=== PATIENT | male | born 1995 | race Caucasian/White ===

== ENCOUNTER 2018-12-17 15:09 | Emergency (ER) | payer OTHER ==
[~2018-12-17] VITALS: Ht 182.9 cm; Wt 54.4 kg
[2018-12-17] MEDS ORDERED: PERIDEX15 ML MM (15:52)
[2018-12-17] MEDS ORDERED: Veetids 500500 MG PO (15:52)
== END 2018-12-17 16:21 | disposition home or self-care (01) ==
LOC: ER 15:09
DX: K04.7 Periapical abscess without sinus (principal); Z88.0 Allergy status to penicillin
CPT/HCPCS: 41800; 99283-25

== ENCOUNTER 2019-03-03 22:58 | Inpatient (IN) | payer OTHER ==
[~2019-03-03] VITALS: Ht 182.9 cm; Wt 61.1 kg
[~2019-03-03 22:58] MED LIST: PERIDEX15 ML MM; Veetids 500500 MG PO
[2019-03-04 00:09] LABS: BASOPHILS ABSOLUTE AUTO 0.04 K/mm3 (0.00-0.23); BASOPHILS PERCENT AUTO 0 % (0-2); EOSINOPHILS ABSOLUTE AUTO 0.03 K/mm3 (0.00-0.68); EOSINOPHILS PERCENT AUTO 0 % (0-6); Hemoglobin 14.6 g/dL (13.5-17.5); IMMATURE GRAN ABSOLUTE AUTO 0.06 K/mm3 (0.00-0.10); IMMATURE GRAN PERCENT AUTO 0 % (0-1); LYMPHOCYTES ABSOLUTE AUTO 0.84 K/mm3 (0.84-5.20); LYMPHOCYTES PERCENT AUTO 5 % (21-46); MONOCYTES ABSOLUTE AUTO 0.79 K/mm3 (0.16-1.47); MONOCYTES PERCENT AUTO 5 % (4-13); Mean Corpuscular HGB 29.1 pg (26.0-34.0); Mean Corpuscular HGB Conc 32.4 g/dL (31.5-36.5); Mean Corpuscular Volume 90 fL (80-100); Mean Platelet Volume 11.2 fL (9.1-12.4); NEUTROPHILS ABSOLUTE AUTO 15.93 K/mm3 (1.96-9.15); NEUTROPHILS PERCENT AUTO 90 % (41-73); Platelet Count 282 K/mm3 (150-400); RDW Coefficient Variation 14.3 % (11.7-14.2); RDW Standard Deviation 47.3 fL (35.1-46.3); Red Blood Cell Count 5.01 M/mm3 (4.30-5.90); White Blood Cell Count 17.69 K/mm3 (4.00-11.30)
[2019-03-04 00:16] LABS: Alanine Aminotransfer (ALT/SGP 29 U/L (12-78); Albumin, Blood 4.2 g/dL (3.4-5.0); Albumin/Globulin Ratio 1.1 (0.8-1.8); Alk Phos 73 U/L (50-136); Anion Gap 8 mmol/L (6-16); Aspartate Aminotrans (AST/SGOT 21 U/L (12-37); Bilirubin, Total 0.3 mg/dL (0.1-1.0); Blood Urea Nitrogen 12 mg/dL (8-24); Bun/Creatinine Ratio 15.4 (12.0-20.0); CO2, Blood 28 mmol/L (21-32); Calcium, Blood 9.1 mg/dL (8.5-10.1); Chloride, Blood 105 mmol/L (98-108); Creatinine, Blood 0.78 mg/dL (0.60-1.20); Globulin, Blood 3.7 g/dL (2.2-4.0); Glomerular Filtration Rate >60 (60-); Glucose, Blood 126 mg/dL (70-99); Potassium, Blood 4.1 mmol/L (3.5-5.5); Sodium, Blood 141 mmol/L (136-145); Total Protein, Blood 7.9 g/dL (6.4-8.2)
[2019-03-04 01:47] LABS: Appearance, Synovial Fluid Cloudy (Clear); Color, Synovial Fluid Red (None-P Yel)
--- NOTE | 2019-03-04 01:51 | NUR ---
transfer report on 24 year old Male with DX sepsis and rt knee infection. Reported to have hx of multiple cellulitis and unknown organism. Smoker. await admission
[2019-03-04 02:00] LABS: BODY FLUID RBC 0.166 M/mm3 (0-0); RBC Count, Synovial Fluid 166000 /mm3 (0-0); WBC Count, Synovial Fluid 682 /mm3 (0-180)
[2019-03-04 02:03] LABS: Body Fluid Crystals NEG (NEGATIVE)
[2019-03-04 02:16] LABS: Lymphs, Synovial Fluid 4 % (0-15); Monocytes/Macrophages, Synovia 8 % (0-65); Neutrophils, Synovial Fluid 88 % (0-24)
--- NOTE | 2019-03-04 04:32 | NUR ---
24 YEAR OLD MALE ADMITTED WITH SEPSIS AND RT KNEE SEPSIS. PT HAS HX OF METH ABUSE X 6 YEARS AND MULTIPLE SKIN INFECTIONS WELL DENTAL ABSCESS ONGOING. PT HAS HX OF NONCOMPLIANCE WITH FILLING RX TO TREAT SERIOUS INFECTIONS. PT SAYS HE WAS LIFE FLIGHTED TO [facility] YEARS AGO WITH FINGER INFECTION AND WAS SEEN HERE FOR ORAL ABSCESS IN END OF NOVEMBER 2018. SAYS HE DID NOT BOTHER TO FILL RX TO TX ORAL ABSCESS. SAYS HE DRAINS TO UPPER ORAL ABSCESS DAILY BUT DID NOT YESTERDAY.PT HAS UNKEMPT APPEARANCE HE IS COOPERATIVE. BROUGHT IN TO ER BY EMPLOYER DUE TO CHILLS FEVER AND PAIN & EDEMA REDNESS WARMTH RT KNEE. WOUND CULTURE SENT BY ER. RECIEVING IV GRANT TO TX INFECTION.
[2019-03-04 04:43] LABS: BASOPHILS ABSOLUTE AUTO 0.03 K/mm3 (0.00-0.23); BASOPHILS PERCENT AUTO 0 % (0-2); EOSINOPHILS ABSOLUTE AUTO 0.01 K/mm3 (0.00-0.68); EOSINOPHILS PERCENT AUTO 0 % (0-6); IMMATURE GRAN ABSOLUTE AUTO 0.08 K/mm3 (0.00-0.10); IMMATURE GRAN PERCENT AUTO 0 % (0-1); LYMPHOCYTES ABSOLUTE AUTO 1.35 K/mm3 (0.84-5.20); LYMPHOCYTES PERCENT AUTO 7 % (21-46); MONOCYTES ABSOLUTE AUTO 0.97 K/mm3 (0.16-1.47); MONOCYTES PERCENT AUTO 5 % (4-13); Mean Corpuscular HGB 29.3 pg (26.0-34.0); Mean Corpuscular HGB Conc 32.4 g/dL (31.5-36.5); Mean Corpuscular Volume 90 fL (80-100); Mean Platelet Volume 11.3 fL (9.1-12.4); NEUTROPHILS PERCENT AUTO 87 % (41-73); Platelet Count 251 K/mm3 (150-400); RDW Coefficient Variation 14.4 % (11.7-14.2); RDW Standard Deviation 47.9 fL (35.1-46.3); White Blood Cell Count 18.24 K/mm3 (4.00-11.30)
[2019-03-04 15:27] LABS: Vancomycin, Trough 11.6 ug/mL (5.0-10.0)
--- NOTE | 2019-03-04 17:58 | NUR ---
SHIFT SUMMARY PT SLEEPING MOST OF DAY BUT ROUSES EASILY. UP FOR SHOWER THIS EVENING AND REPORTED IT HELPED PAIN TO R KNEE. DR. HANNAH IN TO SEE PT THIS AFTERNOON WITH PLANS TO DO AN I AND D ON R KNEE TOMORROW. NO FEVERS NOTED. R KNEE RED AND WARM TO TOUCH. INDEPENDENT WHEN WALKING IN ROOM.
--- NOTE | 2019-03-05 04:52 | NUR ---
SHIFT SUMMARY A/O, ABLE TO MAKE NEEDS KNOWN. COOPERATIVE WITH CARE. CALLS AND ANSWERS QUESTIONS APPROPRIATELY. C/O PAIN/DISCOMFORT X1; MEDICATED PER EMAR. APPEARED TO REST MUCH OF SHIFT. VSS/AFEBRILE. HAS BEEN NPO SINCE MIDNIGHT. NO ACUTE CHANGES OVERNIGHT. BED REMAINED IN LOWEST POSITION. CALL LIGHT AND BELONGINGS WITHIN REACH. WCTM. REPORT TO ONCOMING RN.
[2019-03-05 11:27] LABS: Vancomycin, Trough 14.1 ug/mL (5.0-10.0)
--- NOTE | 2019-03-05 13:10 | NUR ---
03/05/19 1310 Waleska Dunham PT ON SCHEDULED ANTIBIOTICS
--- NOTE | 2019-03-05 18:26 | NUR ---
SHIFT SUMMARY PT AXO, COOPERATIVE WITH CARE. PT HAD I&D THIS SHIFT, SEE NOTE. DRAIN IN PLACE, PATENT AND DRAINING SMALL AMOUNT OF RED FLUID. PT MEDICATED FOR PAIN PER EMAR. VOIDING IN URINAL. PT HAD SHOWER PRIOR TO SURGERY. VSS. IV PATENT AND INFUSING PER EMAR.
--- NOTE | 2019-03-06 04:18 | NUR ---
SHIFT SUMMARY: PT IS ALERT AND ORIENTED. PT IS CALM AND COOPERATIVE WITH CARE. PT CALLS APPROPRIATELY. PT USING THE URINAL IN BED INDEPENDENTLY, UP INDEPENDENTLY WITH FWW. PT REPORTS PAIN IN THE R. KNEE, MEDICATING PER EMAR. PT REQUESTED MELATONIN TO SLEEP, TALKED WITH Dick YUNG AND RECEIVED THE ORDER, GIVEN. PT DENIES NAUSEA, VOMITING, AND SOB. NO ACUTE CHANGES OR COMPLICATIONS OVERNIGHT. BED IN LOW POSITION, CALL LIGHT WITHIN REACH. WILL REPORT TO DAY NURSE.
[2019-03-06 04:54] LABS: BASOPHILS ABSOLUTE AUTO 0.03 K/mm3 (0.00-0.23); BASOPHILS PERCENT AUTO 0 % (0-2); EOSINOPHILS ABSOLUTE AUTO 0.01 K/mm3 (0.00-0.68); EOSINOPHILS PERCENT AUTO 0 % (0-6); Hemoglobin 10.5 g/dL (13.5-17.5); IMMATURE GRAN ABSOLUTE AUTO 0.08 K/mm3 (0.00-0.10); IMMATURE GRAN PERCENT AUTO 1 % (0-1); LYMPHOCYTES ABSOLUTE AUTO 1.09 K/mm3 (0.84-5.20); LYMPHOCYTES PERCENT AUTO 6 % (21-46); MONOCYTES ABSOLUTE AUTO 1.49 K/mm3 (0.16-1.47); MONOCYTES PERCENT AUTO 9 % (4-13); Mean Corpuscular HGB 29.2 pg (26.0-34.0); Mean Corpuscular HGB Conc 31.8 g/dL (31.5-36.5); Mean Corpuscular Volume 92 fL (80-100); Mean Platelet Volume 11.6 fL (9.1-12.4); NEUTROPHILS ABSOLUTE AUTO 14.52 K/mm3 (1.96-9.15); NEUTROPHILS PERCENT AUTO 84 % (41-73); Platelet Count 240 K/mm3 (150-400); RDW Coefficient Variation 14.5 % (11.7-14.2); RDW Standard Deviation 49.3 fL (35.1-46.3); White Blood Cell Count 17.22 K/mm3 (4.00-11.30)
[2019-03-06 05:14] LABS: Anion Gap 4 mmol/L (6-16); Blood Urea Nitrogen 13 mg/dL (8-24); Bun/Creatinine Ratio 15.9 (12.0-20.0); CO2, Blood 31 mmol/L (21-32); Calcium, Blood 8.6 mg/dL (8.5-10.1); Chloride, Blood 106 mmol/L (98-108); Creatinine, Blood 0.82 mg/dL (0.60-1.20); Glomerular Filtration Rate >60 (60-); Glucose, Blood 127 mg/dL (70-99); Potassium, Blood 4.3 mmol/L (3.5-5.5); Sodium, Blood 141 mmol/L (136-145)
[2019-03-06 11:50] LABS: Vancomycin, Trough 12.9 ug/mL (5.0-10.0)
--- NOTE | 2019-03-06 15:16 | NUR ---
SHIFT SUMMARY PT IS A/O X 4 WITH ONGOING PAIN TO HIS RIGHT KNEE. THE SURGICAL DRAIN WAS IN PLACE THIS MORNING WITH A SCANT AMOUNT OF BRIGHT RED DRAINAGE. AFTER LUNCH A PROVIDER FROM SURGERY CAME TO THE BEDSIDE AND REMOVED THE DRAIN AND THERE ARE NOW 2 AQUACEL DRESSINGS C.D.I. TO HIS RIGHT KNEE. THE KNEE AND SURROUNDING AREA ARE WARM TO THE TOUCH AND SLIGHTLY SWOLLEN. PT IS ABLE TO AMBULATE WITH FWW AND X 1 ASSIST TO THE BATHROOM BUT ALSO USES THE URINAL AT BEDSIDE. THIS NURSE ASSISTED THE PT TO TAKE A SHOWER AND CHANGED HIS LINENS WELL. IV ABO AND FLUIDS INFUSING ORDERED WITH NO ADVERSE REACTIONS OBSERVED. PT DID WORK WITH THERAPIES TODAY. HE IS RESTING IN BED AND IS ABLE TO MAKE HIS NEEDS KNOWN.
--- NOTE | 2019-03-07 03:00 | NUR ---
03/06/191929 PT RIGHT KNEE DRESSING DRY AND INTACT WITH EDEMA NOTED TO SITE; ABLE BEAR WEIGHT RLE; SLIGHTLY ANXIOUS WITH CURRENT HOSPITALIZATION AT TIMES.
--- NOTE | 2019-03-07 04:03 | NUR ---
SHIFT SUMMARY: 24 Y/O SLENDER MALE RESTED COMFORTABLY ALL SHIFT WITH OCCASIONAL EPISODES ANXIETY THAT PATIENT WAS ABLE TO RESOLVE PER SELF WITHOUT MEDICATIONS REQUIRED; +2 EDEMA RIGHT KNEE NOTED; C/O RIGHT KNEE PAIN RATED 7/10 WITH TRAMADOL 50MG PO X 1 GIVEN WITH RELIEF FELT; UP IN ROOM PER SELF AND ABLE TO BEAR WEIGHT RLE; DENIES CHEST PAIN OR SOB; BED LOW POSITION WITH CALL LIGHT AT SIDE.
[2019-03-07 11:57] LABS: Vancomycin, Trough 23.8 ug/mL (5.0-10.0)
[2019-03-07] MEDS ORDERED: TRAM50 PO (13:33)
[2019-03-07] MEDS ORDERED: BACTRIM DS TAB1 EACH PO (13:34)
--- NOTE | 2019-03-07 13:54 | NUR ---
PT DCD HOME. RX FAXED TO PHARMACY OF PT CHOICE. ALL MEDS AND INSTRUCTIONS REVIEWED WITH PT WHO VERBALIZED AN UNDERSTANDING. PT REQUESTED TO SCHEDULE HIS FOLLOW UPS. IV REMOVED WITH NO ISSUES. ALL PERSONAL BELONGINGS SENT WITH PT. PT STABLE UPON DC.
== END 2019-03-07 14:20 | disposition home or self-care (01) | DRG 854 ==
LOC: ER 22:58 → MEDS 03-04 00:45
PROVIDERS: Internal Medicine; Orthopaedic Surgery; Pharmacist; Physician Assistant; ADMIT Hospitalist
PROC: 0J9N0ZZ Drainage of Right Lower Leg Subcutaneous Tissue and Fascia, Open Approach (ICD-10-PCS; principal; 2019-03-05 12:30)
DX: A41.02 Sepsis due to Methicillin resistant Staphylococcus aureus (principal); L02.415 Cutaneous abscess of right lower limb; L03.115 Cellulitis of right lower limb; M70.51 Other bursitis of knee, right knee; F19.90 Other psychoactive substance use, unspecified, uncomplicated; F17.210 Nicotine dependence, cigarettes, uncomplicated
CPT/HCPCS: 20610; 36415; 73701; 80048; 80053; 80202; 83605; 85025; 87040; 87070; 87075; 87077; 87147; 87186; 87205; 89051; 89060; 96365; 96375; 97116; 97162; 97165; 97535; 99285; A9270; J0696; J1100; J1170; J1885; J2250; J2405; J2704; J3010; J3370; J7030; J7040; J7050; J7120; Q9967

== ENCOUNTER 2019-03-25 15:13 | Inpatient (IN) | payer OTHER ==
[~2019-03-25] VITALS: Ht 182.9 cm; Wt 61.5 kg
[~2019-03-25 15:13] MED LIST changes: +BACTRIM DS TAB1 EACH PO; +TRAM50 PO
[2019-03-25 15:59] LABS: BASOPHILS ABSOLUTE AUTO 0.07 K/mm3 (0.00-0.23); BASOPHILS PERCENT AUTO 1 % (0-2); EOSINOPHILS ABSOLUTE AUTO 0.16 K/mm3 (0.00-0.68); EOSINOPHILS PERCENT AUTO 2 % (0-6); Hematocrit 43.7 % (37.0-53.0); Hemoglobin 14.2 g/dL (13.5-17.5); IMMATURE GRAN ABSOLUTE AUTO 0.01 K/mm3 (0.00-0.10); IMMATURE GRAN PERCENT AUTO 0 % (0-1); LYMPHOCYTES ABSOLUTE AUTO 1.83 K/mm3 (0.84-5.20); LYMPHOCYTES PERCENT AUTO 23 % (21-46); MONOCYTES ABSOLUTE AUTO 0.59 K/mm3 (0.16-1.47); MONOCYTES PERCENT AUTO 7 % (4-13); Mean Corpuscular HGB 29.3 pg (26.0-34.0); Mean Corpuscular HGB Conc 32.5 g/dL (31.5-36.5); Mean Corpuscular Volume 90 fL (80-100); Mean Platelet Volume 10.4 fL (9.1-12.4); NEUTROPHILS ABSOLUTE AUTO 5.49 K/mm3 (1.96-9.15); NEUTROPHILS PERCENT AUTO 67 % (41-73); Platelet Count 391 K/mm3 (150-400); RDW Coefficient Variation 14.8 % (11.7-14.2); RDW Standard Deviation 48.9 fL (35.1-46.3); Red Blood Cell Count 4.84 M/mm3 (4.30-5.90); White Blood Cell Count 8.15 K/mm3 (4.00-11.30)
[2019-03-25 16:15] LABS: International Normalized Ratio 0.95; Prothrombin Time Results 10.2 Sec (9.7-11.5)
[2019-03-25 16:22] LABS: Alanine Aminotransfer (ALT/SGP 30 U/L (12-78); Albumin, Blood 4.5 g/dL (3.4-5.0); Albumin/Globulin Ratio 1.2 (0.8-1.8); Alk Phos 81 U/L (50-136); Anion Gap 1 mmol/L (6-16); Aspartate Aminotrans (AST/SGOT 25 U/L (12-37); Bilirubin, Total 0.4 mg/dL (0.1-1.0); Blood Urea Nitrogen 27 mg/dL (8-24); Bun/Creatinine Ratio 32.6 (12.0-20.0); CO2, Blood 29 mmol/L (21-32); Calcium, Blood 9.4 mg/dL (8.5-10.1); Chloride, Blood 107 mmol/L (98-108); Creatinine, Blood 0.83 mg/dL (0.60-1.20); Globulin, Blood 3.9 g/dL (2.2-4.0); Glomerular Filtration Rate >60 (60-); Glucose, Blood 83 mg/dL (70-99); Potassium, Blood 4.4 mmol/L (3.5-5.5); Sodium, Blood 137 mmol/L (136-145); Total Protein, Blood 8.4 g/dL (6.4-8.2)
[2019-03-26 06:00] LABS: BASOPHILS ABSOLUTE AUTO 0.05 K/mm3 (0.00-0.23); BASOPHILS PERCENT AUTO 1 % (0-2); EOSINOPHILS ABSOLUTE AUTO 0.23 K/mm3 (0.00-0.68); EOSINOPHILS PERCENT AUTO 3 % (0-6); Hematocrit 38.3 % (37.0-53.0); Hemoglobin 12.3 g/dL (13.5-17.5); IMMATURE GRAN ABSOLUTE AUTO 0.01 K/mm3 (0.00-0.10); IMMATURE GRAN PERCENT AUTO 0 % (0-1); LYMPHOCYTES ABSOLUTE AUTO 2.03 K/mm3 (0.84-5.20); LYMPHOCYTES PERCENT AUTO 28 % (21-46); MONOCYTES ABSOLUTE AUTO 0.65 K/mm3 (0.16-1.47); MONOCYTES PERCENT AUTO 9 % (4-13); Mean Corpuscular HGB 29.5 pg (26.0-34.0); Mean Corpuscular HGB Conc 32.1 g/dL (31.5-36.5); Mean Corpuscular Volume 92 fL (80-100); Mean Platelet Volume 10.2 fL (9.1-12.4); NEUTROPHILS ABSOLUTE AUTO 4.41 K/mm3 (1.96-9.15); NEUTROPHILS PERCENT AUTO 60 % (41-73); Platelet Count 312 K/mm3 (150-400); RDW Standard Deviation 51.2 fL (35.1-46.3); Red Blood Cell Count 4.17 M/mm3 (4.30-5.90); White Blood Cell Count 7.38 K/mm3 (4.00-11.30)
[2019-03-26 06:20] LABS: Anion Gap 4 mmol/L (6-16); Blood Urea Nitrogen 26 mg/dL (8-24); Bun/Creatinine Ratio 32.7 (12.0-20.0); CO2, Blood 27 mmol/L (21-32); Calcium, Blood 8.5 mg/dL (8.5-10.1); Chloride, Blood 109 mmol/L (98-108); Glomerular Filtration Rate >60 (60-); Glucose, Blood 88 mg/dL (70-99); Potassium, Blood 3.9 mmol/L (3.5-5.5); Sodium, Blood 140 mmol/L (136-145)
--- NOTE | 2019-03-26 06:22 | NUR ---
PT VSS T/O NIGHT. TOP OF WOUND RED, DRNG SMALL AMT SS/YELLOW DRNG. DRESSING PLACED OVER R KNEE WOUND. PT DNNIED NEED FOR PAIN MEDS. IV ABX CONT PER ORDERS. PT NPO POST MIDNIGHT FOR PLAN FOR I&D TODAY. WILL CONT TO MONITOR UNTIL REP GIVEN TO ONCOMING RN.
--- NOTE | 2019-03-26 06:51 | NUR ---
VANCO TROUGH: CRITICAL VANCO TROUGH REC THIS AM. VANCO MGD PER PHARMACY. CALL PLACED TO PHARMACIST, LABS AND ORDERS REV. TROUGH WAS ACTUALLY SCHEDULED FOR 1700 TODAY. PLAN TO CONT TX CURRENT ORDERS, PHARMACIST TO PLACE NEW LAB ORDER FOR 1700 TODAY.
--- NOTE | 2019-03-26 16:04 | NUR ---
PT TO CT THIS AM TO RULE OUT ABSCESS. PER DR. CARCAMO, IMAGING TO BE READ. POSSIBLE FOR PT TO HAVE I&D TOMORROW. PT ABLE TO EAT NOW. WILL BE NPO AT 0000 TONIGHT. PT MADE AWARE AND DIET CHANGED. WILL CTM PT STATUS.
[2019-03-26 18:05] LABS: Vancomycin, Trough 21.7 ug/mL (5.0-10.0)
--- NOTE | 2019-03-26 19:19 | NUR ---
SUMMARY: SEE PREVIOUS NOTE. NO ACUTE CHANGE. PT A/O, VSS, INDEPENDENT IN ROOM. PT DENIED PAIN, SLEPT THE MAJORITY OF THE DAY. NO ACUTE CONCERNS. REPORT GIVEN TO WILLIS KNIGHT RN
[2019-03-27 04:55] LABS: BASOPHILS ABSOLUTE AUTO 0.05 K/mm3 (0.00-0.23); BASOPHILS PERCENT AUTO 1 % (0-2); EOSINOPHILS ABSOLUTE AUTO 0.27 K/mm3 (0.00-0.68); EOSINOPHILS PERCENT AUTO 4 % (0-6); Hematocrit 39.2 % (37.0-53.0); Hemoglobin 12.7 g/dL (13.5-17.5); IMMATURE GRAN ABSOLUTE AUTO 0.01 K/mm3 (0.00-0.10); IMMATURE GRAN PERCENT AUTO 0 % (0-1); LYMPHOCYTES ABSOLUTE AUTO 1.92 K/mm3 (0.84-5.20); LYMPHOCYTES PERCENT AUTO 28 % (21-46); MONOCYTES ABSOLUTE AUTO 0.78 K/mm3 (0.16-1.47); MONOCYTES PERCENT AUTO 11 % (4-13); Mean Corpuscular HGB 29.7 pg (26.0-34.0); Mean Corpuscular HGB Conc 32.4 g/dL (31.5-36.5); Mean Corpuscular Volume 92 fL (80-100); Mean Platelet Volume 10.5 fL (9.1-12.4); NEUTROPHILS ABSOLUTE AUTO 3.79 K/mm3 (1.96-9.15); NEUTROPHILS PERCENT AUTO 56 % (41-73); Platelet Count 282 K/mm3 (150-400); RDW Coefficient Variation 14.7 % (11.7-14.2); RDW Standard Deviation 49.5 fL (35.1-46.3); Red Blood Cell Count 4.28 M/mm3 (4.30-5.90); White Blood Cell Count 6.82 K/mm3 (4.00-11.30)
--- NOTE | 2019-03-27 05:19 | NUR ---
PT VSS T/O NIGHT. PAIN MGD W/TORADOL W/REP RELIEF. WOUND SRNG SMALL AMT SS DRNG, DRESSING ANS KYLAH WRAP IN PLACE. PT DENIES N/T, CIRC CHECKS WNL. PT NPO POST MIDNIGHT FOR PLAN FOR OR TODAY. IV ABX CONT PER ORDERS. WILL CONT TO MONITOR UNTIL REP GIVEN TO ONCOMING RN.
[2019-03-27 11:43] LABS: Vancomycin, Trough 15.7 ug/mL (5.0-10.0)
--- NOTE | 2019-03-27 18:04 | NUR ---
SUMMARY PATIENT HAS DENIED KNEE PAIN DURING THIS SHIFT, REPORTS SOME ITCHING AROUND INCISION SITE. QUARTER SIZED AREA OF SEROUS DRAINAGE ON RIGHT KNEE DRESSING. PER PT REQUEST ABD REPLACED AND NEW KYLAH WRAP APPLIED AREA ITCHING. PT SLEEPS SOUNDLY AT TIMES AND AWAKENS SOAKED WITH SWEAT- DENIES FEELING CHILLS OR FEVER SENSATION. PATIENT AWARE OF NPO AFTER MIDNIGHT ORDER
--- NOTE | 2019-03-28 04:19 | NUR ---
Patient is alert and pleasant. he is independent in the room. His rt knee is wrapped with and donavan bandage with an abd pad over the old surgical site. no drainage on the pad all shift. along the surgical line, there is redness and no swelling. No complaints of pain in his knee or leg. He did have pain associated with one of his rt upper molars. tramadol given with good results. no othe acute changes.
--- NOTE | 2019-03-28 15:57 | NUR ---
SHIFT SUMMARY PT A&OX4, VSS, R KNEE W/ABD & KYLAH CDI. DENIES PAIN. DENIES N&V, CLAYTON PO REGULAR DIET. INDEPENDENT IN ROOM, TO BRP. VOIDING WELL. POWERGLIDE LUE, FLUSHES WELL, INFUSING ABX ORDERED PER EMAR. WILL REPORT TO ONCOMING NOC RN.
--- NOTE | 2019-03-29 15:48 | NUR ---
SHIFT SUMMARY PT A&OX4, VSS, R KNEE DRESSING CHANGE TODAY: PEROXIDE, ABD PAD & KYLAH WRAP. DENIES PAIN. DENIES N&V, CLAYTON REG ADULT DIET. AMBULATION INDEPENDENT IN ROOM TO BRP. VOIDING WELL. ABX INFUSING ORDERED PER EMAR. POWERGLIDE LUE FLUSHES WELL. SHOWERED TODAY. CONSULT FOR I.D. CALLED AND MESSAGE LEFT. WILL REPORT TO ONCOMING NOC RN.
--- NOTE | 2019-03-30 04:30 | NUR ---
SHIFT SUMMARY PT IS A/O X4 AND IND. IN ROOM. PT HAS NO C/O OF PAIN IN R KNEE. PT IS TOLERATING PO FOOD AND FLUIDS AND IS VOIDING. PT WAS ABLE TO GET SOME REST DURING THE SHIFT. PT REPORTS NO CONCERNS OR COMPLAINTS. ASSISTED WITH ADL'S PRN.
--- NOTE | 2019-03-30 11:35 | NUR ---
dr viveros in to see pt.
[2019-03-30 12:08] LABS: Creatinine, Blood 0.93 mg/dL (0.60-1.20); Vancomycin, Trough 15.9 ug/mL (5.0-10.0)
[2019-03-30] MEDS ORDERED: ACET325 PO (13:55)
[2019-03-30] MEDS ORDERED: RIFA300 PO (13:55)
[2019-03-30] MEDS ORDERED: BACTRIM DS TAB1 EACH PO (13:56)
--- NOTE | 2019-03-30 14:46 | NUR ---
discharged DC'D POWER GLIDE, CATHETER INTACT. CHANGED DRESSING PER ORDERS AND PROVIDED SUPPLIES TO PT. REVIEWED DC PAPERWORK; PT VERBALIZED UNDERSTANDING. PT GETTING DRESSED. SIGNED DC PAPERWORK. WOUND CARE SUPPLIES AND DC PAPERWORK IN BAG ON BED.
--- NOTE | 2019-03-30 15:10 | NUR ---
PT LEFT UNIT BY AMBULATION, POSSESSIONS, DRESSING PAPERWORK AND DRESSING SUPPLIES IN HAND.
== END 2019-03-30 15:00 | disposition home or self-care (01) | DRG 558 ==
LOC: ER 15:13 → SURS 15:14
PROVIDERS: Internal Medicine; Nurse Practitioner Acute Care; Pharmacist; Physician Assistant; ADMIT Internal Medicine
DX: M70.41 Prepatellar bursitis, right knee (principal); L03.115 Cellulitis of right lower limb; F17.210 Nicotine dependence, cigarettes, uncomplicated; B95.62 Methicillin resistant Staphylococcus aureus infection as the cause of diseases classified elsewhere
CPT/HCPCS: 36415; 73562-RT; 73701; 80048; 80053; 80202; 82565; 83605; 85025; 85610; 85730; 87040; 90686; 93005; 93010; 96365; 96366; 96367; 96375; 99285-25; G0008; G0378; J0696; J1200; J1885; J3370; J7050; Q9967